=== PATIENT | female | born 1975 | race Caucasian/White ===

== ENCOUNTER 2016-12-24 19:39 | Emergency (ER) | payer OTHER ==
[~2016-12-24] VITALS: Ht 175.3 cm; Wt 85.6 kg
[~2016-12-24 19:39] MED LIST: ASPI81TA82 PO; LEXA20TA PO
[2016-12-24 19:43] VITALS: PULSE 122; RESP 24; TEMP 97.7; O2SAT 96
[2016-12-24] MEDS ORDERED: LEVO25TA4 PO (19:54)
[2016-12-24] MEDS ORDERED: LEXA5TAB PO (19:54)
[2016-12-24] MEDS ORDERED: BUPR100CR PO (19:54)
[2016-12-24] MEDS ORDERED: AUGM875T3 PO (20:28)
--- NOTE | 2016-12-24 20:28 | PD ---
HPI Chief Complaint: Bite or Sting Time Seen by Provider: 20:05 Travel History International Travel<30 days: No Contact w/Intl Traveler<30days: No Traveled to known affect area: No History of Present Illness HPI 41-year-old female presents emergency Department after sustaining a cat bite to her left thumb. He Is a family pet. It is up-to-date on its immunizations. There is a small puncture wound in the lateral nail fold of the left thumb. Tetanus status unknown [facility] Past Medical History Medical History: Denies Significant Hx Blood Disorders: No Cancer: No Cardiovascular Problems: No Cerebrovascular Accident: No Diminished Hearing: No Endocrine: No Glaucoma: No Headaches: Yes Immune Disorder: No Musculoskeletal: Yes Neurologic: Yes Psychiatric: No Reproductive: No Respiratory: Yes Migraines: Yes Seizures: No ?: Not : 2 Para: 2 Ovarian Cysts: Yes Past Surgical History Abdominal Surgery: Yes (HERNIA REPAIR) AICD: No Arteriovenous Shunt: No Gynecologic Surgery: Yes (CYST REMOVE RT. OVARY 2001) Insulin Pump: No Joint Replacement: No Pacemaker: No Thoracic Surgery: Yes (BREAST IMPLANTS 2003) Tonsillectomy: Yes Other Surgery: Yes Social History Alcohol Use: No (QUIT 6 MONTHS AGO) Tobacco Use: No (QUIT 6 MONTHS AGO) Substance Use: No Allergies-Medications (Allergen,Severity, Reaction): Coded Allergies: Sulfa (Verified Allergy, Severe, Anaphylaxis, 12/24/16) Codeine (Verified Adverse Reaction, Severe, FEELS FUNNY, 12/24/16) VOMITS Reported Meds & Prescriptions Reported Meds & Active Scripts Active Reported Wellbutrin SR 12 HR (Bupropion HCl) 100 Mg Tab Unknown Dose PO Q12HR Levothyroxine (Levothyroxine Sodium) 25 Mcg Tab Unknown Dose PO DAILY Lexapro (Escitalopram Oxalate) 5 Mg Tab Unknown Dose PO DAILY Review of Systems Except as stated in HPI: all other systems reviewed are Neg Physical Exam Narrative GENERAL: Well-nourished, well-developed patient. SKIN: Focused skin assessment warm/dry. Small abrasion/puncture wound left thumb near the nail fold. HEAD: Normocephalic. EYES: No scleral icterus. No injection or drainage. NECK: Supple, trachea midline. No JVD or lymphadenopathy. MUSCULOSKELETAL: No cyanosis, or edema. Data Data Last Documented VS Vital Signs Date Time Temp Pulse Resp B/P Pulse Ox O2 Delivery O2 Flow Rate FiO2 12/24/16 19:43 97.7 122 24 96 [facility] Medical Decision Making Medical Screen Exam Complete: Yes Emergency Medical Condition: Yes Differential Diagnosis Animal bite, abrasion Narrative Course 41 year old female who sustained a small abrasion/Bite to her left thumb by her cat. The wound is very superficial. The cat was up-to-date on his immunizations. Diagnosis Primary Impression: Cat bite of left thumb Qualified Code: S61.052A - Cat bite of left thumb, initial encounter Referrals: Primary Care Physician Scripts Amoxicillin-Clavulanate (Augmentin)875-125 Mg Tab1 Tab PO BID #10 TAB Prov:Mandi Correa 12/24/16 Disposition: 01 DISCHARGE HOME Condition: Stable Mandi Correa Dec 24, 2016 20:28
[2016-12-24] MEDS ORDERED: TETANUS/DIPHTHERIA TOXOID ADULT 0.5 ML VIAL IM ONE (20:30)
== END 2016-12-24 20:44 | disposition home or self-care (01) ==
LOC: PHEFT 19:39
DX: S61.052A Open bite of left thumb without damage to nail, initial encounter (principal); Z23 Encounter for immunization; Z87.39 Personal history of other diseases of the musculoskeletal system and connective tissue; Z86.69 Personal history of other diseases of the nervous system and sense organs; Z87.891 Personal history of nicotine dependence; W55.01XA Bitten by cat, initial encounter
CPT/HCPCS: 90471; 90714